=== PATIENT | female | born 1975 | race Caucasian/White ===

== ENCOUNTER 2017-03-05 17:54 | Emergency (ER) | payer OTHER ==
[2017-03-05 17:54] VITALS: BMI 23.6
[2017-03-05 17:59] VITALS: RESP 18
[2017-03-05] MEDS ORDERED: Sodium Chloride 0.9% 1,000 ML IV ONE (18:16)
[2017-03-05] MEDS ORDERED: Sodium Chloride 0.9% 1,000 ML ONE (18:30)
[2017-03-05 18:33] LABS: BASO # 0.1 K/uL (0.0-0.2); BASO % 0.9 % (0.0-2.0); EOS % 0.1 % (0.0-4.0); HEMATOCRIT 34.6 % (34.0-47.0); LYMPH # 1.1 K/uL (1.0-4.3); LYMPH % 11.2 % (20.0-40.0); MEAN CELL VOLUME 70.6 fL (81.0-99.0); MEAN CORPUSCULAR HEMOGLOBIN 23.1 pg (27.0-31.0); MEAN CORPUSCULAR HGB CONC 32.7 g/dL (33.0-37.0); MEAN PLATELET VOLUME 9.4 fL (7.2-11.7); MONO # 0.4 K/uL (0.0-0.8); MONO % 4.1 % (0.0-10.0); RED CELL DISTRIBUTION WIDTH 15.7 % (11.5-14.5); WHITE BLOOD COUNT 9.5 K/uL (4.8-10.8)
[2017-03-05 18:42] LABS: CHLORIDE 100 mmol/L (98-107); SODIUM 136 mmol/L (132-148)
[2017-03-05 18:43] LABS: POTASSIUM 3.5 mmol/L (3.6-5.2)
[2017-03-05 18:45] LABS: ALB/GLOB RATIO 1.5 (1.0-2.1); ALKALINE PHOSPHATASE 62 U/L (38-126); ALT/SGPT 25 U/L (9-52); AST/SGOT 29 U/L (14-36); BILIRUBIN,TOTAL 0.8 mg/dL (0.2-1.3); BLOOD UREA NITROGEN 9 mg/dL (7-17); CARBON DIOXIDE 22 mmol/L (22-30); GFR AFRICAN-AMERICAN > 60; GLUCOSE,RANDOM 120 mg/dL (65-105); TOTAL PROTEIN 7.6 g/dL (6.3-8.3)
[2017-03-05 18:46] LABS: CALCIUM 9.7 mg/dl (8.6-10.4); MAGNESIUM 1.9 mg/dL (1.6-2.3)
--- NOTE | 2017-03-05 19:42 | CT ---
EXAM: CT Head Without Intravenous Contrast CLINICAL HISTORY: 41 years old, female; Pain; Headache; Headache not specified TECHNIQUE: Axial computed tomography images of the head/brain without intravenous contrast. This CT exam was performed using one or more of the following dose reduction techniques: automated exposure control, adjustment of the mA and/or kV according to patient size, and/or use of iterative reconstruction technique. EXAM DATE/TIME: Exam ordered 03/05/2017 6:16 PM COMPARISON: No relevant prior studies available. FINDINGS: Brain: There is a 6 mm hypodense lesion noted in the right posterior parietal lobe. No hemorrhage. No significant white matter disease. No edema. Ventricles: Unremarkable. No ventriculomegaly. Bones/joints: Unremarkable. No acute fracture. Soft tissues: Unremarkable. Sinuses: Unremarkable as visualized. No acute sinusitis. Mastoid air cells: Unremarkable as visualized. No mastoid effusion. IMPRESSION: 6 mm hypodense lesion noted in the right posterior parietal lobe. There is likely a portion of the posterior horn of the right lateral ventricle. A small lacunar infarct or prominent Virchow Efraín space are other possibilities. Low grade glioma is less likely. MRI might be helpful in this patient. Images were attached to this report and are available at [email or web address]
--- NOTE | 2017-03-05 20:23 | C.PDOC ---
Time Seen by Provider: 03/05/17 18:06 Chief Complaint (Nursing): Headache History Per: Patient, Family, Hand Blocker History/Exam Limitations: language barrier Onset/Duration Of Symptoms: Hrs, Gradual Current Symptoms Are (Timing): Still Present Severity: Moderate Quality: "Pain" Associated Symptoms: Nausea, Vomiting Additional History Per: Prior Records Past Medical History Reviewed: Historical Data, Nursing Documentation, Vital Signs Vital Signs: Last Vital Signs Temp 98.3 F 03/05/17 17:57 Pulse 76 03/05/17 17:57 Resp 18 03/05/17 17:57 BP 130/87 03/05/17 17:57 Pulse Ox 100 03/05/17 17:57 - Medical History PMH: Anemia, Migraine Surgical History: Family History: States: Unknown Family Hx - Social History Hx Tobacco Use: No Hx Alcohol Use: No Hx Substance Use: No - Immunization History Hx Tetanus Toxoid Vaccination: No Hx Influenza Vaccination: No Hx Pneumococcal Vaccination: No Review Of Systems Except As Marked, All Systems Reviewed And Found Negative. Constitutional: Negative for: Fever, Weakness Cardiovascular: Negative for: Chest Pain Respiratory: Negative for: Shortness of Breath Gastrointestinal: Negative for: Abdominal Pain Musculoskeletal: Positive for: Back Pain. Negative for: Neck Pain Skin: Negative for: Rash Neurological: Positive for: Headache. Negative for: Weakness, Seizures, Altered Mental Status Psych: Positive for: Anxiety Physical Exam - Physical Exam Appears: Non-toxic, Other (Anxious, hyperventilating) Skin: Normal Color, Warm, Dry, No Rash Head: Atraumatic, Normacephalic Eye(s): bilateral: PERRL, EOMI Neck: Normal ROM, Supple Cardiovascular: Rhythm Regular Respiratory: Normal Breath Sounds, No Accessory Muscle Use Gastrointestinal/Abdominal: Soft, No Tenderness Back: No CVA Tenderness Extremity: Normal ROM Neurological/Psych: Oriented x3, Normal Speech, Normal Cranial Nerves, No Cerebellar Signs, Normal Motor, Normal Sensation ED Course And Treatment - Laboratory Results Result Diagrams: 03/05/17 18:30 03/05/17 18:30 Lab Interpretation: No Acute Changes O2 Sat by Pulse Oximetry: 100 Pulse Ox Interpretation: Normal - Radiology CXR: Interpreted by Me, Viewed By Me CXR Interpretation: Yes: No Acute Disease - CT Scan/US CT head Other Rad Studies (CT/US): Read By Radiologist, Radiology Report Reviewed CT/US Interpretation: IMPRESSION: 6 mm hypodense lesion noted in the right posterior parietal lobe. There is. likely a portion of the posterior horn of the right lateral ventricle. A small. lacunar infarct or prominent Virchow Efraín space are other possibilities. Low. grade glioma is less likely. MRI might be helpful in this patient. Progress Note: Pt feels much better and wants to go home. Reassessment Condition: Improved Progress - Interventions Interventions:: Observation, Intravenous fluid - Medications Administered Intravenous: Antiemetic - Data Reviewed Data Reviewed: Lab, Diagnostic imaging, Old records - Patient Status Patient status: Mostly improved - Continuity of Care Discussed patient case with:: Patient, Family-HIPPA compliant, ED Nurse - Patient Plan Patient Plan: Discharge, F/U with PCP Disposition Counseled Patient/Family Regarding: Studies Performed, Diagnosis, Need For Followup, Rx Given - Disposition Referrals: [facility] [Outside] Disposition: HOME/ ROUTINE Disposition Time: 20:24 Condition: IMPROVED Additional Instructions: Follow up in the clinic within 1-2 weeks for further evaluation and treatment, including MRI of the brain. Return to the ER if you develop weakness, stiff neck , severe headache, worsening of symptoms or if you have any other concerns. Prescriptions: Acetaminophen/Butalbital/Caf [Fioricet] 1 tab PO TID PRN #20 tab PRN Reason: Headache Instructions: General Headache (ED) Print Language: MONGOLIAN - Clinical Impression Clinical Impression: Headache, Anxiety
[2017-03-05 20:41] VITALS: BP 119/79; PULSE 71; TEMP 97.8; O2SAT 99
--- NOTE | 2017-03-06 10:34 | RAD ---
HISTORY: Upper back pain. Portable study 18:51. COMPARISON: 06/24/2011. No prior. FINDINGS: LUNGS: No active pulmonary disease. PLEURA: No significant pleural effusion identified, no pneumothorax apparent. CARDIOVASCULAR: Normal. OSSEOUS STRUCTURES: No significant abnormalities. VISUALIZED UPPER ABDOMEN: Normal. OTHER FINDINGS: None. IMPRESSION: No active disease. No significant interval change compared to the prior examination(s).
== END 2017-03-05 20:50 | disposition home or self-care (01) ==
LOC: C.ER 17:54
DX: R51 Headache (principal); F41.9 Anxiety disorder, unspecified; D64.9 Anemia, unspecified
CPT/HCPCS: 70450; 71010; 80053; 83735; 85025; 96360; 99285; J2765; J7040

== ENCOUNTER 2017-09-13 16:24 | Emergency (ER) | payer OTHER ==
[2017-09-13 16:24] VITALS: BMI 23.6
[2017-09-13 16:40] VITALS: BP 118/89; PULSE 84; TEMP 97.9; O2SAT 99
--- NOTE | 2017-09-13 17:19 | C.PDOC ---
History Of Present Illness 41 y/o female with PMHx of Anxiety brought to ED by EMS status post syncope episode at work prior to arrival. At ED patient is complaining of severe headache with associated tingling to arms and blurred vision since this morning prior to syncope episode. Patient reports she took Motrin with mild relief but did not completely resolve all day and states she does not recall how long syncope episode lasted. Patient states she had same headache 4 months ago and seen at ED, had CT Scan with advised follow up. Patient denies fever, chills or any other complaints at this time. Time Seen by Provider: 09/13/17 16:50 Chief Complaint (Nursing): Syncope History Per: Patient History/Exam Limitations: no limitations Onset/Duration Of Symptoms: Hrs Current Symptoms Are (Timing): Still Present Activity At Onset Of Symptoms: Standing Past Medical History Reviewed: Historical Data, Nursing Documentation, Vital Signs Vital Signs: Last Vital Signs Temp 97.9 F 09/13/17 16:44 Pulse 84 09/13/17 16:44 Resp 20 09/13/17 17:40 BP 118/89 09/13/17 16:44 Pulse Ox 99 09/13/17 17:32 - Medical History PMH: Anemia, Migraine Surgical History: Family History: States: No Known Family Hx - Social History Hx Tobacco Use: No Hx Alcohol Use: No Hx Substance Use: No - Immunization History Hx Tetanus Toxoid Vaccination: No Hx Influenza Vaccination: No Hx Pneumococcal Vaccination: No Review Of Systems Constitutional: Negative for: Fever, Chills Eyes: Positive for: Vision Change Cardiovascular: Positive for: Chest Pain, Palpitations, Light Headedness Gastrointestinal: Negative for: Nausea, Vomiting Skin: Negative for: Rash Neurological: Positive for: Headache Physical Exam - Physical Exam Appears: Non-toxic, No Acute Distress Skin: Normal Color, Warm, Dry, No Rash Head: Atraumatic, Normacephalic Eye(s): bilateral: Normal Inspection, PERRL, EOMI Oral Mucosa: Moist Neck: Supple Cardiovascular: Rhythm Regular Respiratory: Normal Breath Sounds, No Rales, No Rhonchi, No Wheezing Gastrointestinal/Abdominal: Soft, No Tenderness, No Guarding, No Rebound Extremity: Normal ROM, Capillary Refill (<2 seconds) Neurological/Psych: Oriented x3, Normal Speech, Normal Motor, Normal Sensation Gait: Steady ED Course And Treatment ECG: Interpreted By Me, Viewed By Me ECG Rhythm: Sinus Rhythm Rate From EC (bpm) O2 Sat by Pulse Oximetry: 99 (RA) Pulse Ox Interpretation: Normal Medical Decision Making Medical Decision Making: anxiety, probably brief vaso-vagal syncope (brief) back to baseline @ ED eval Fioricet re-written outpatient Neuro f/u encouraged for MRI as recommended 02/22 Disposition Doctor Will See Patient In The: Office Counseled Patient/Family Regarding: Studies Performed, Diagnosis - Disposition Referrals: [facility] [Outside] [facility] [Outside] Disposition: HOME/ ROUTINE Disposition Time: 17:32 Condition: STABLE Additional Instructions: Sigue Fioricet kristen necessario para kermit leonela de irma Sigue en la Clinica o' el Neurologo para hacer MRI del cerebro para seguir la abnormalidad notado en [place] CT del Cerebro 02/22 Prescriptions: Acetaminophen/Butalbital/Caf [Fioricet] 1 tab PO TID PRN #20 tab PRN Reason: Headache Instructions: Near Syncope (ED), Anxiety (ED) Forms: [email or web address] ([place]), Work Excuse Print Language: BHUTANESE - Clinical Impression Clinical Impression: Near syncope, Anxiety - Scribe Statement The provider has reviewed the documentation as recorded by the Scribsuresh Arellano All medical record entries made by the Scribe were at my direction and personally dictated by me. I have reviewed the chart and agree that the record accurately reflects my personal performance of the history, physical exam, medical decision making, and the department course for this patient. I have also personally directed, reviewed, and agree with the discharge instructions and disposition.
--- NOTE | 2017-09-13 17:29 | C.PDOC ---
Time Seen by Provider: 09/13/17 16:50 Chief Complaint (Nursing): Syncope Past Medical History Vital Signs: Last Vital Signs Temp 97.9 F 09/13/17 16:44 Pulse 84 09/13/17 16:44 Resp 16 09/13/17 16:44 BP 118/89 09/13/17 16:44 Pulse Ox 99 09/13/17 16:44 - Medical History PMH: Anemia, Migraine Surgical History: Family History: States: Unknown Family Hx - Social History Hx Tobacco Use: No Hx Alcohol Use: No Hx Substance Use: No - Immunization History Hx Tetanus Toxoid Vaccination: No Hx Influenza Vaccination: No Hx Pneumococcal Vaccination: No ED Course And Treatment O2 Sat by Pulse Oximetry: 99 Medical Decision Making Medical Decision Making: anxiety, probably brief vaso-vagal syncope (brief) back to baseline @ ED blu Elena re-written outpatient Neuro f/u encouraged for MRI as recommended 02/22 Disposition - Disposition
[2017-09-13 17:41] VITALS: RESP 20
--- NOTE | 2017-09-18 03:08 | CARD ---
APPROVED REPORT EKG Measurement Heart [id number] <Conclusion> Normal sinus rhythm Cannot rule out Anterior infarct, age undetermined Abnormal ECG
== END 2017-09-13 17:40 | disposition home or self-care (01) ==
LOC: C.ER 16:24
DX: R55 Syncope and collapse (principal); F41.9 Anxiety disorder, unspecified